=== PATIENT | male | born 1950 | race African-American/Black ===

== ENCOUNTER 2019-01-30 09:32 | Day surgery (SDC) | payer MEDICARE, MEDICAID ==
[~2019-01-30] VITALS: Ht 167.6 cm; Wt 77.1 kg
[2019-01-30 11:46] LABS: HEMATOCRIT 38.4 % (42.0-52.0); HEMOGLOBIN 12.8 g/dL (14.0-18.0); MEAN CORPUSCULAR HEMOGLOBIN 27.9 pg (28.0-32.0); PLATELET 168 x1000/uL (130-400); RED BLOOD CELL COUNT 4.57 mill/uL (4.7-6.1)
[2019-01-30 11:51] LABS: CHLORIDE 110 mEq/L (98-107)
[2019-01-30] MEDS ORDERED: METF-414 MT (11:54)
[2019-01-30] MEDS ORDERED: ASPI-1159 MT (11:54)
[2019-01-30] MEDS ORDERED: MIDAZOLAM HCL 2 MG/2 ML VIAL ONE (12:29)
[2019-01-30] MEDS ORDERED: IOHEXOL-300 100 ML BOTTLE ONE (12:29)
[2019-01-30] MEDS ORDERED: FENTANYL CITRATE/PF 50MCG/ML 2ML VIAL ONE (12:29)
[2019-01-30] MEDS ORDERED: LIDOCAINE HCL 1% 20ML VIAL (Pyxis) INJ ONE (12:30)
[2019-01-30] MEDS ORDERED: HEPARIN SODIUM 1,000 UNIT/1ML VIAL IV ONE (14:49)
[2019-01-30] MEDS ORDERED: NICARDIPINE 100MCG/ML 10ML VIAL (CATH LAB) IV ONE (14:49)
[2019-01-30] MEDS ORDERED: NITROGLYCERIN 50MCG/ML 10ML VIAL (CATH LAB) IV ONE (14:49)
== END 2019-01-30 16:00 | disposition home or self-care (01) ==
LOC: CCL 09:32
PROVIDERS: ATTEND Internal Medicine Cardiovascular Disease
DX: I25.10 Atherosclerotic heart disease of native coronary artery without angina pectoris (principal); E11.9 Type 2 diabetes mellitus without complications; E78.5 Hyperlipidemia, unspecified; Z95.0 Presence of cardiac pacemaker; I10 Essential (primary) hypertension; Z79.82 Long term (current) use of aspirin; Z79.899 Other long term (current) drug therapy; Z98.890 Other specified postprocedural states
CPT/HCPCS: 36415; 80048; 85027; 93005; 93458; C1769; C1887; J1644; J2250; J3010; J3490; Q9967